=== PATIENT | male | born 1985 | race Caucasian/White ===

== ENCOUNTER 2017-09-24 10:03 | Emergency (ER) | payer SELFPAY ==
--- NOTE | 2017-09-24 10:23 | CPEKG ---
Heart Rate: 108 RR Interval: 556 P-R Interval: 184 QRSD Interval: 98 QT Interval: 316 QTC Interval: 424 P Adrian: 76 QRS Adrian: 79 T Wave Adrian: 13 EKG Severity - ABNORMAL ECG - EKG Impression: SINUS TACHYCARDIA EKG Impression: CT depression in the inferior leads, consider pericarditis Electronically Signed By: Carmen Velasquez 24-Sep-2017 15:16:12
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
[2017-09-24] MEDS ORDERED: ONDANSETRON 4 MG/2 ML VIAL IVP ONE (10:36)
[2017-09-24 10:43] LABS: PLATELET COUNT 441 10^3/uL (150-400)
[2017-09-24] MEDS ORDERED: IOPAMIDOL (ISOVUE 370) 100 ML BTL IV ONE (10:43)
[2017-09-24] MEDS ORDERED: HYDROmorphONE/DILAUDID 1 MG/ML INJ IVP ONE (11:30)
--- NOTE | 2017-09-24 12:20 | ECHO ---
[email or web address] [address] Main: [phone] Fax: Transthoracic Echocardiogram Name: MATT HOLMAN MR#: [id number] Study Date: 09/24/2017 Study Time: 11:36 AM Date of : 1985 Age: 32 year(s) Height: 182.9 cm (72 in.) Weight: 77.11 kg (170 lb.) BSA: 1.99 m2 Gender: Male Examination: Echo Indication: Severe chest pain/back pain, pericardial effusion by CT Image Quality: Contrast: Requested by: Carmen Velasquez BP: 116 mmHg/65 mmHg Heart Rate: Rhythm: Tachycardia Indication: Severe chest pain/back pain, pericardial effusion by CT Procedure Staff Hr Associate: Dandy Rivas Reading Physician: Yasmani Dixon Requesting Provider: Conclusions: Normal size left ventricle. No LV hypertrophy. Normal global systolic LV function. EF is 63 %. No regional wall motion abnormality. Normal diastolic LV function. Normal size right ventricle. The mitral valve is normal in appearance and function. There is no mitral valve regurgitation. The aortic valve is normal in appearance and function. Small pericardial effusion. No echocardiographic evidence of hemodynamic compromise. There is no obvious evidence of a aortic dissection by the echo view in the ascending, or aortic arch.. Measurements: Chambers Valvular Assessment AV/MV Valvular Assessment TV/PV Normal Normal Normal Name Value Range Name Value Range Name Value Range Ao Julisa (MM): 2.9 cm (2.2 cm-3.7 AV Vmax: 1.61 m/s (1 m/s-1.7 PV Vmax: 1.21 m/s (0.6 m/s-0.9 cm) m/s) m/s) IVSd (2D): 0.9 cm (0.6 cm-1.1 AV maxP mmHg ( - ) PV PGmax: 6 mmHg ( - ) cm) LVOT Vmax: 1.35 m/s (0.7 m/s-1.1 LVDd (2D): 5.1 cm (4.2 cm-5.9 m/s) cm) MV E Vmax: 0.76 m/s ( - ) LVDs (2D): 3.4 cm (2.1 cm-4 MV A Vmax: 0.37 m/s ( - ) cm) MV E/A: 2.05 ( - ) LVPWd (2D): 0.9 cm (0.6 cm-1 cm) LVEF (2D): 63 (>=54 %) Patient: MATT HOLMAN Study Date: 09/24/2017 Page 1 of 2 11:36 AM Continued Measurements: Chambers Valvular Assessment AV/MV Name Value Name Value LADs Lon.2 cm MV E/E' Septal: 6.40 LA Area: 19.3 cm2 MV E/E' Lateral: 5.60 Findings: Left Ventricle: Normal size left ventricle. No LV hypertrophy. Normal global systolic LV function. EF is 63 %. No regional wall motion abnormality. Normal diastolic LV function. Right Ventricle: Normal size right ventricle. Left Atrium: The left atrium is normal in size. Right Atrium: The right atrium is normal in size. Mitral Valve: The mitral valve is normal in appearance and function. There is no mitral valve regurgitation. Aortic Valve: The aortic valve is tri-leaflet. The aortic valve is normal in appearance and function. Tricuspid Valve: The tricuspid valve is normal in appearance and function. Pulmonic Valve: The pulmonic valve is normal in appearance and function. Aorta: The aorta is normal. No dilatation of the aorta. Pericardium: Small pericardial effusion. No echocardiographic evidence of hemodynamic compromise. There is no obvious evidence of a aortic dissection by the echo view in the ascending, or aortic arch.. (No Signature Object) Patient: MATT HOLMAN Study Date: 09/24/2017 Page 2 of 2 11:36 AM [id number]
[2017-09-24] MEDS ORDERED: KETOROLAC 15 MG/1 ML SDV IVP ONE (12:46)
[2017-09-24] MEDS ORDERED: COLCHICINE 0.6 MG CAP/TAB PO ONE (12:53)
[2017-09-24 13:21] VITALS: BP 112/76; PULSE 89; RESP 19; TEMP 97.8; O2SAT 93
--- NOTE | 2017-09-24 13:33 | GCON ---
[f rep st] CONSULTATION The patient is a healthy gentleman who developed chest discomfort. He has been very well and healthy. He has been exercising, feeling good and then, about 2-1/2 weeks ago he got a little bit of discomfort between his shoulder blades. He developed, today, severe left chest discomfort, shortness of breath and very, very bad pain. He feels cold. He has not felt hot. He has not had fever, chills. He has not had upper respiratory tract symptoms. He has had no rashes or arthralgias. He has had no nausea, vomiting. No lightheadedness, dizziness. No fatigue. No trauma at all. He is a healthy man. Has not had heart issues. He has a remote history of migraines. Those have not been bothering him. CARDIAC RISK FACTORS: Negative for hypertension, diabetes mellitus, hyperlipidemia, hyperuricemia, f amily history of premature coronary disease, smoking, or any known coronary artery disease. He does not have obesity. REVIEW OF SYSTEMS: Negative except as noted above. 10-point review of systems. MEDICATIONS: None. SURGICAL HISTORY: Status post splenectomy. SOCIAL HISTORY: He was born in [place], [place], went to school here. He is a student now of [employer], starting in a few days. 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 He work ed hard and there was a lot of labor involved, many strange hours. He has a roommate who is helpful. He exercises by yoga and swimming on a regular basis. He has been swimming for 10-15 years and santana es it as an exercise. Does not smoke, does not drink significant amounts of alcohol, and does not use any other drugs. FAMILY HISTORY: No family history of premature coronary artery disease. No history of unexplained s udden at a young age. PHYSICAL EXAMINATION: VITAL SIGNS: His heart rate is 90, respiratory rate is 12, his blood pressure is 130/70. HEENT: Pupils equal and reactive. Mucous membranes and mouth moist. NECK: Supple. C ARDIOVASCULAR: S1, S2. Soft systolic murmur left sternal border. No diastolic murmur. No S3, S4. No rubs. PULMONARY: Rhonchi. No rales, wheezing, or dullness. ABDOMEN: Soft, nontender, without masses. CVA: No tenderness. EXTREMITIES: No edema, inflammation or ulceration. SKIN: Age-relat ed changes. PSYCH: No obvious anxiety or depression. The EKG shows sinus tachycardia with MA depression in II, III, and aVF, consistent with pericarditis. Chest x-ray is unremarkable. The patient has had dissection ruled out by a CT scan. No pulmonary em bolic disease. Question of pericarditis. Echocardiogram shows that the patient has a pericardial ef fusion without any tamponade physiology. White count is 21.63, hematocrit 45, platelets are 441. Sodium 143, potassium 4.8, chloride 105, CO2 19, BUN 11, creatinine 0.8. Troponin less than 0.02. NT-BNP 34. Glucose 93. ASSESSMENT AND PLAN: Chest pain. The patient has a clinical picture which is consistent with acute pericarditis. I think that that is his current problem. There is nothing to suggest an acute coronary syndrome in his case. His pulses are full and equal and the CT angiogram did not show anything consistent with a n aortic dissection. His D-dimer is negative. And the CT scan shows no pulmonary embolic disease in terms of the differential diagnosis. So far, there is nothing to suggest pneumonia, but that is cer tainly a possibility in his case that may be just brewing and with hydration might show up. Bessy galvez has a very remarkable white count. There is nothing to suggest a pneumothorax. When we think of pericarditis, obviously the most common cause is idiopathic and then people can get infectious causes, obviously coxsackie, echovirus, Kaela-Hernandez, HIV. Tuberculosis, Lyme disease. T here are other bacterial, fungal, and parasitic infections clearly. He does not have any uremia as a cause. Connective tissue disease is possible but aside from his migraines, he does not have much fo r that differential diagnosis. he has not had trauma or any drugs that might cause it, sosa ch as hydralazine, procainamide, isoniazid, phenytoin, penicillin, and will check his thyroid functio ns. We can check his sedimentation rate for interest. Often times, the CPK or troponin and pericarditis will be slightly elevated. At this point in time, he is getting some aggressive narcotics and we wou ld start then the nonsteroidal anti-inflammatory medicines. Colchicine would be given to him to rule out and prevent recurrent pericarditis. We would normally give it 1-2 mg for 1 day and then 0.5 mg a day for 3 months. We will obviously try very hard to avoid any steroids in him. The patient himself wants to go home and has a good roommate who is very reliable, so that will be de cided with the emergency room staff depending on how his pain is controlled. I think he may need to be hospitalized no matter what, given how poorly he felt earlier this morning. Obviously if he stays in the hospital, that is good for us because we can watch him very carefully, take care of any probl ems that come up and make sure he is stable. I have discussed this case with the emergency room physician. Thank you very much. /[id number]/[id number]
== END 2017-09-24 13:19 | disposition home or self-care (01) ==
DX: I30.9 Acute pericarditis, unspecified (principal)
CPT/HCPCS: 82947-QW; 96374; J1170; J1885; J2405; Q9967